=== PATIENT | male | born 1995 | race Two or more races ===

== ENCOUNTER → 2020-01-08 | Outpatient (CLI) | payer OTHER ==
--- NOTE | 2020-01-08 16:24 | KCIC ---
Examination: 2 views of the right shoulder HISTORY: History of right shoulder pain COMPARISON: None available FINDINGS: The humerus head is within the glenoid. Mild degenerative changes identified in the acromion clavicular joint, glenohumeral joint. IMPRESSION: No acute osseous findings. Electronically signed by: Benjamin Miguel MD (01/08/2020 4:20 PM) [facility] – [place]
== END | disposition home or self-care (01) ==
LOC: KCIC 15:13
PROVIDERS: ATTEND Internal Medicine
DX: M19.011 Primary osteoarthritis, right shoulder (principal)
CPT/HCPCS: 73030